=== PATIENT | female | born 1940 | race Caucasian/White ===

== ENCOUNTER 2023-04-19 04:05 | Day surgery (SDC) | payer OTHER ==
[2023-04-18 09:47] VITALS: BMI 30.4
[2023-04-19] MEDS ORDERED: LIDOCAINE HCL 1%, 10 MG/ML (20ML VIAL) ONE (09:15)
[2023-04-19] MEDS ORDERED: FENTANYL CITRATE/PF 50 MCG/ML VIAL ONE (09:26)
[2023-04-19] MEDS ORDERED: PROPOFOL 20 ML ONE (09:26)
[2023-04-19] MEDS ORDERED: MIDAZOLAM HCL 2 MG/2 ML SINGLE DOSE VIAL ONE (09:26)
[2023-04-19] MEDS ORDERED: ONDANSETRON 4 MG/2 ML VIAL ONE (09:49)
[2023-04-19] MEDS ORDERED: DEXAMETHASONE SOD PHOSPHATE 4 MG/1 ML VIAL ONE (09:49)
[2023-04-19] MEDS ORDERED: ceFAZolin SODIUM 1 GM VIAL ONE (09:53)
[2023-04-19] MEDS ORDERED: ceFAZolin SODIUM 1 GM VIAL IVPB ONE (09:54)
[2023-04-19] MEDS ORDERED: LIDOCAINE HCL 1%, 10 MG/ML (20ML VIAL) NR ONE ×2 (09:58)
[2023-04-19] MEDS ORDERED: BUPIVACAINE HCL 0.5% 250 MG/50 ML VIAL NR ONE (09:58)
[2023-04-19] MEDS ORDERED: KETOROLAC TROMETHAMINE 30 MG/1 ML VIAL ONE (10:15)
[2023-04-19 12:10] VITALS: BP 122/56; PULSE 72; RESP 16; TEMP 97.3
== END 2023-04-19 12:40 | disposition home or self-care (01) ==
LOC: JASU-SURG 04:05
PROVIDERS: ATTEND Orthopaedic Surgery
PROC: 0LB50ZZ Excision of Right Lower Arm and Wrist Tendon, Open Approach (ICD-10-PCS; 2023-04-19)
PROC: 01N50ZZ Release Median Nerve, Open Approach (ICD-10-PCS; principal; 2023-04-19 09:30)
DX: G56.01 Carpal tunnel syndrome, right upper limb (principal); M65.831 Other synovitis and tenosynovitis, right forearm
CPT/HCPCS: 82962; 88304-TC

== ENCOUNTER 2023-11-07 01:04 | Emergency (ER) | payer OTHER ==
[2023-11-07 01:15] VITALS: BP 105/64; PULSE 68; RESP 18; TEMP 97.9; BMI 28.3
[2023-11-07] MEDS ORDERED: ACETAMINOPHEN 325 MG TABLET (FP) ONE (02:06)
[2023-11-07] MEDS: ACETAMINOPHEN 325 MG TABLET (FP) PO ONE (02:10)
== END 2023-11-07 04:54 | disposition home or self-care (01) ==
LOC: JER 01:04
DX: M25.552 Pain in left hip (principal); W06.XXXA Fall from bed, initial encounter
CPT/HCPCS: 70450-TC; 71045-TC-FY; 72125-TC; 72170-TC-FY; 73502-TC-LT-FY; 73562-TC-LT-FY; 99284-25

== ENCOUNTER 2023-11-29 10:20 | Inpatient (IN) | payer OTHER ==
[2023-11-29] MEDS ORDERED: ACETAMINOPHEN INJECTION 100 ML IVPB ONE (13:01)
[2023-11-29] MEDS: ACETAMINOPHEN 1000 MG/100 ML BAG IVPB ONE (13:10)
[2023-11-29 13:11] LABS: BASO % 0.7 % (0-2.0); EOS % 3.1 % (0-4.5); HEMATOCRIT 35.5 % (32.4-45.2); LYMPH % 18.9 % (8-40); MCH 31.9 pg (25.7-33.7); MCHC 33.8 g/dl (32.0-36.0); MEAN CELL VOLUME 94.6 fl (80-96); MONO % 8.4 % (3.8-10.2); NEUT % 68.9 % (42.8-82.8); PLATELET COUNT 318 10^3/uL (134-434); RBC 3.76 M/mm3 (3.60-5.2); RDW 13.4 % (11.6-15.6); WHITE BLOOD COUNT 9.3 K/mm3 (4.0-10.0)
[2023-11-29 13:18] LABS: PROTHROMBIN TIME (PATIENT) 11.5 SEC (9.7-13.0)
[2023-11-29 13:28] LABS: POTASSIUM 4.1 mmol/L (3.5-5.1)
[2023-11-29 13:30] LABS: BLOOD UREA NITROGEN 23.3 mg/dL (7-18)
[2023-11-29 13:31] LABS: ALBUMIN 3.3 g/dl (3.4-5.0)
[2023-11-29 13:34] LABS: CREATININE 0.6 mg/dL (0.55-1.3)
[2023-11-29 13:35] LABS: BILIRUBIN,TOTAL 0.4 mg/dL (0.2-1); TOT PROT 5.9 g/dl (6.4-8.2)
[2023-11-29] MEDS: PIPERACILLIN/TAZOB 3.375 GM 3.375 GM in DEXTROSE 5%-WATER - 50 ML IVPB ONE (16:25)
[2023-11-29] MEDS ORDERED: PIPERACILLIN/TAZOB 3.375 GM 3.375 GM/50 ML BAG IVPB ONE (16:29)
[2023-11-29] MEDS ORDERED: VANCOMYCIN 1 GRAM (PRE-DOCKED) 1,000 MG/250 ML BAG IVPB ONE (16:29)
[2023-11-29] MEDS: VANCOMYCIN 1,000 MG in DEXTROSE 5%-WATER - 250 ML IVPB ONE (16:49)
[2023-11-29] MEDS ORDERED: CEFAZOLIN SODIUM 2 GM VIAL IVPB SCH (17:30)
[2023-11-29] MEDS ORDERED: ENOXAPARIN NA (PORCINE) 40 MG/0.4 ML DISP.SYRIN SQ ONE (17:49)
[2023-11-29] MEDS: ENOXAPARIN NA (PORCINE) 40 MG/0.4 ML DISP.SYRIN SQ SCH (18:53)
[2023-11-29] MEDS ORDERED: GABAPENTIN 300 MG CAPSULE ONE (22:03)
[2023-11-29] MEDS ORDERED: ATORVASTATIN CA 80 MG TABLET (FP) ONE (22:04)
[2023-11-29] MEDS ORDERED: DOCUSATE SODIUM 100 MG CAPSULE (FP) PO ONE (22:04)
[2023-11-29] MEDS: ATORVASTATIN CA 80 MG TABLET (FP) PO SCH (22:07)
[2023-11-29] MEDS: GABAPENTIN 300 MG CAPSULE PO SCH (22:07)
[2023-11-29] MEDS: DOCUSATE SODIUM 100 MG CAPSULE (FP) PO SCH (22:07)
[2023-11-29] MEDS: LATANOPROST 0.005% OPHTH SOLN 2.5ML BOTTLE OU SCH (22:49)
[2023-11-29] MEDS: TIMOLOL 0.5% OPHTHALMIC SOL 5 ML BOTTLE OU SCH (22:49)
[2023-11-30] MEDS ORDERED: ceFAZolin SODIUM 1 GM VIAL ONE (00:07)
[2023-11-30] MEDS: CEFAZOLIN SODIUM 2 GM in DEXTROSE 5%-WATER 100 ML IVPB SCH (00:13)
[2023-11-30] MEDS ORDERED: GABAPENTIN 300 MG CAPSULE ONE (05:55)
[2023-11-30 08:48] LABS: BASO % 0.8 % (0-2.0); EOS % 3.7 % (0-4.5); HEMATOCRIT 36.1 % (32.4-45.2); HEMOGLOBIN 11.9 GM/dL (10.7-15.3); LYMPH % 33.7 % (8-40); MCH 31.4 pg (25.7-33.7); MCHC 32.9 g/dl (32.0-36.0); MEAN CELL VOLUME 95.2 fl (80-96); MEAN PLT VOLUME 7.3 fl (7.5-11.1); MONO % 8.7 % (3.8-10.2); NEUT % 53.1 % (42.8-82.8); PLATELET COUNT 316 10^3/uL (134-434); RBC 3.79 M/mm3 (3.60-5.2); RDW 13.4 % (11.6-15.6); WHITE BLOOD COUNT 6.2 K/mm3 (4.0-10.0)
[2023-11-30 09:08] LABS: POTASSIUM 3.7 mmol/L (3.5-5.1)
[2023-11-30] MEDS ORDERED: LISINOPRIL 20 MG TABLET ONE (09:08)
[2023-11-30] MEDS ORDERED: HYDROCHLOROTHIAZIDE 25 MG TABLET (FP) ONE (09:08)
[2023-11-30] MEDS ORDERED: CEFAZOLIN SODIUM 2 GM VIAL ONE (09:09)
[2023-11-30] MEDS ORDERED: ASPIRIN 81 MG CHEWABLE TABLETS ONE (09:09)
[2023-11-30 09:14] LABS: ALBUMIN 3.2 g/dl (3.4-5.0); BLOOD UREA NITROGEN 16.2 mg/dL (7-18); CALCIUM 9.7 mg/dL (8.5-10.1)
[2023-11-30 09:16] LABS: CREATININE 0.6 mg/dL (0.55-1.3)
[2023-11-30] MEDS: ASPIRIN 81 MG CHEWABLE TABLETS PO SCH (09:16)
[2023-11-30 09:17] LABS: PHOSPHOROUS 3.7 mg/dL (2.5-4.9)
[2023-11-30] MEDS: HYDROCHLOROTHIAZIDE 25 MG TABLET (FP) PO SCH (09:17)
[2023-11-30] MEDS: LISINOPRIL 20 MG TABLET PO SCH (09:17)
[2023-11-30] MEDS: POLYETHYLENE GLYCOL (HEALTHYLAX) 3350 17 GM PACKET PO SCH (09:17)
[2023-11-30 09:18] LABS: BILIRUBIN,TOTAL 0.6 mg/dL (0.2-1); TOT PROT 5.8 g/dl (6.4-8.2)
[2023-11-30 09:19] LABS: MAGNESIUM 1.5 mg/dL (1.8-2.4)
[2023-11-30 13:26] VITALS: BMI 29.7
[2023-12-01] MEDS: MAGNESIUM SULF 50% (8.12 MEQ/2 ML-1 GM VIAL) IVPB ONE (08:53)
[2023-12-01] MEDS ORDERED: ACETAMINOPHEN 1000 MG/100 ML BAG IVPB PRN (10:09)
[2023-12-01] MEDS: GABAPENTIN 300 MG CAPSULE PO SCH (15:21)
[2023-12-01 16:42] LABS: EPI CELLS >36 /uL (0-25.1); HYALINE CASTS 2 /uL (0-3.1); PH,URINE 6.5 (5.0-8.0); URINE APPEARANCE CLOUDY; URINE BACTERIA 348 /uL (0-1359); URINE BILIRUBIN NEGATIVE (NEGATIVE); URINE COLOR YELLOW; URINE GLUCOSE (UA) NEGATIVE (NEGATIVE); URINE KETONE NEGATIVE (NEGATIVE); URINE LEUK ESTERASE 3+ (NEGATIVE); URINE NITRITE NEGATIVE (NEGATIVE); URINE PROTEIN TRACE (NEGATIVE); URINE RBC 27 /uL (0-23.9); URINE WBC 2265 /uL (0-25.8)
[2023-12-02 08:20] LABS: BASO % 0.7 % (0-2.0); EOS % 3.2 % (0-4.5); HEMATOCRIT 40.1 % (32.4-45.2); HEMOGLOBIN 13.2 GM/dL (10.7-15.3); LYMPH % 27.2 % (8-40); MCH 31.2 pg (25.7-33.7); MCHC 32.8 g/dl (32.0-36.0); MEAN CELL VOLUME 95.2 fl (80-96); MEAN PLT VOLUME 7.4 fl (7.5-11.1); MONO % 9.1 % (3.8-10.2); NEUT % 59.8 % (42.8-82.8); PLATELET COUNT 299 10^3/uL (134-434); RBC 4.22 M/mm3 (3.60-5.2); RDW 13.5 % (11.6-15.6); WHITE BLOOD COUNT 8.1 K/mm3 (4.0-10.0)
[2023-12-02 08:34] LABS: POTASSIUM 3.9 mmol/L (3.5-5.1)
[2023-12-02 08:43] LABS: CALCIUM 9.7 mg/dL (8.5-10.1)
[2023-12-02 08:44] LABS: ALBUMIN 3.4 g/dl (3.4-5.0); BLOOD UREA NITROGEN 19.9 mg/dL (7-18); MAGNESIUM 1.4 mg/dL (1.8-2.4)
[2023-12-02 08:46] LABS: CREATININE 0.8 mg/dL (0.55-1.3); PHOSPHOROUS 3.6 mg/dL (2.5-4.9)
[2023-12-02 08:48] LABS: BILIRUBIN,TOTAL 0.5 mg/dL (0.2-1); TOT PROT 6.1 g/dl (6.4-8.2)
[2023-12-02] MEDS: ACETAMINOPHEN 500 MG TABLET (FP) PO PRN (11:35)
[2023-12-03 07:30] LABS: ALBUMIN 2.9 g/dl (3.4-5.0); PHOSPHOROUS 3.3 mg/dL (2.5-4.9)
[2023-12-03 07:31] LABS: BLOOD UREA NITROGEN 26.4 mg/dL (7-18)
[2023-12-03 07:32] LABS: BILIRUBIN,TOTAL 0.5 mg/dL (0.2-1); MAGNESIUM 1.6 mg/dL (1.8-2.4); TOT PROT 5.6 g/dl (6.4-8.2)
[2023-12-03 07:34] LABS: CREATININE 0.8 mg/dL (0.55-1.3)
[2023-12-03] MEDS: MAGNESIUM SULF 50% (8.12 MEQ/2 ML-1 GM VIAL) IVPB ONE (08:19)
[2023-12-03] MEDS ORDERED: LISINOPRIL 20 MG TABLET PO SCH (10:22)
[2023-12-03] MEDS: NYSTATIN POWDER 100,000 UNITS/GM - 15 GM TOPICAL POWDER TP SCH (22:50)
[2023-12-04] MEDS: LISINOPRIL 10 MG TABLET PO SCH (09:34)
[2023-12-04 15:05] VITALS: BP 121/72; PULSE 62; RESP 18; TEMP 98.2
== END 2023-12-04 16:37 | DRG 605 ==
LOC: JER 10:20 → JERBED 13:37 → OBSVTOIN 17:25 → J4W 11-30 09:48
PROVIDERS: ADMIT Internal Medicine; ATTEND Internal Medicine
DX: S80.12XA Contusion of left lower leg, initial encounter (principal); G91.9 Hydrocephalus, unspecified; I10 Essential (primary) hypertension; E78.5 Hyperlipidemia, unspecified; E11.51 Type 2 diabetes mellitus with diabetic peripheral angiopathy without gangrene; M48.00 Spinal stenosis, site unspecified; R26.81 Unsteadiness on feet; F41.8 Other specified anxiety disorders; H40.9 Unspecified glaucoma; G89.29 Other chronic pain; Z95.0 Presence of cardiac pacemaker; W06.XXXA Fall from bed, initial encounter; Y92.092 Bedroom in other non-institutional residence as the place of occurrence of the external cause; Y99.9 Unspecified external cause status
CPT/HCPCS: 0241U-QW; 36415; 70450-TC; 71045-TC-FY; 72125-TC; 72170-TC-FY; 73562-TC-LT-FY; 80048; 80053; 81003; 82962; 83735; 84100; 84484; 85025; 85610; 85730; 86140; 87040; 87086; 87635; 93005; 93010; 93306-TC; 93880-TC; 93971-TC; 97116-GP; 97162-GP; 99285-25; G0378; J0131

== ENCOUNTER 2023-12-08 13:16 | Emergency (ER) | payer OTHER ==
[2023-12-08 13:48] VITALS: RESP 18; TEMP 98.1; BMI 30.2
[2023-12-08] MEDS ORDERED: DIPHTH,PERTUSS(ACELL),TET 0.5 ML DISP.SYRIN IM ONE (14:33)
[2023-12-08] MEDS ORDERED: ACETAMINOPHEN 325 MG TABLET (FP) ONE (14:33)
[2023-12-08] MEDS: ACETAMINOPHEN 500 MG TABLET (FP) PO ONE (14:50)
[2023-12-08] MEDS: DIPHTH,PERTUSS(ACELL),TET 0.5 ML DISP.SYRIN IM ONE (14:51)
[2023-12-08 14:56] LABS: BASO % 0.7 % (0-2.0); HEMATOCRIT 35.6 % (32.4-45.2); HEMOGLOBIN 11.8 GM/dL (10.7-15.3); LYMPH % 30.1 % (8-40); MCH 31.3 pg (25.7-33.7); MEAN CELL VOLUME 94.8 fl (80-96); MEAN PLT VOLUME 6.9 fl (7.5-11.1); MONO % 8.4 % (3.8-10.2); NEUT % 56.8 % (42.8-82.8); PLATELET COUNT 332 10^3/uL (134-434); RBC 3.75 M/mm3 (3.60-5.2); RDW 13.4 % (11.6-15.6); WHITE BLOOD COUNT 6.6 K/mm3 (4.0-10.0)
[2023-12-08 15:15] LABS: POTASSIUM 4.2 mmol/L (3.5-5.1)
[2023-12-08 15:17] LABS: CALCIUM 8.9 mg/dL (8.5-10.1)
[2023-12-08 15:18] LABS: ALBUMIN 3.4 g/dl (3.4-5.0); BLOOD UREA NITROGEN 18.1 mg/dL (7-18)
[2023-12-08 15:21] LABS: CREATININE 0.6 mg/dL (0.55-1.3)
[2023-12-08 15:22] LABS: BILIRUBIN,TOTAL 0.3 mg/dL (0.2-1); TOT PROT 6.2 g/dl (6.4-8.2)
[2023-12-08 16:33] LABS: EPI CELLS >36 /uL (0-25.1); HYALINE CASTS 1 /uL (0-3.1); PH,URINE 6.5 (5.0-8.0); URINE APPEARANCE CLEAR; URINE BACTERIA 80 /uL (0-1359); URINE BILIRUBIN NEGATIVE (NEGATIVE); URINE COLOR YELLOW; URINE GLUCOSE (UA) NEGATIVE (NEGATIVE); URINE KETONE NEGATIVE (NEGATIVE); URINE LEUK ESTERASE 1+ (NEGATIVE); URINE NITRITE NEGATIVE (NEGATIVE); URINE PROTEIN NEGATIVE (NEGATIVE); URINE RBC 5 /uL (0-23.9); URINE WBC 34 /uL (0-25.8)
[2023-12-08 20:16] VITALS: BP 112/70; PULSE 76
== END 2023-12-09 00:51 | disposition home or self-care (01) ==
LOC: JER 13:16
PROC: 0YQ9XZZ Repair Right Lower Extremity, External Approach (ICD-10-PCS; principal; 2023-12-08)
PROC: 3E0234Z Introduction of Serum, Toxoid and Vaccine into Muscle, Percutaneous Approach (ICD-10-PCS; 2023-12-08)
DX: S81.811A Laceration without foreign body, right lower leg, initial encounter (principal); W01.0XXA Fall on same level from slipping, tripping and stumbling without subsequent striking against object, initial encounter; Z23 Encounter for immunization
CPT/HCPCS: 12002-25; 36415; 70450-TC; 71045-TC-FY; 72125-TC; 72170-TC-FY; 73590-TC-RT-FY; 80053; 81003; 85025; 87086; 87186; 90471; 90715; 99285-25

== ENCOUNTER 2023-12-16 05:51 | Inpatient (IN) | payer OTHER ==
[2023-12-16 08:39] LABS: BASO % 0.6 % (0-2.0); EOS % 5.2 % (0-4.5); HEMATOCRIT 36.8 % (32.4-45.2); HEMOGLOBIN 12.3 GM/dL (10.7-15.3); LYMPH % 28.5 % (8-40); MCH 31.4 pg (25.7-33.7); MCHC 33.4 g/dl (32.0-36.0); MEAN CELL VOLUME 93.8 fl (80-96); MEAN PLT VOLUME 6.8 fl (7.5-11.1); MONO % 7.7 % (3.8-10.2); PLATELET COUNT 303 10^3/uL (134-434); RBC 3.92 M/mm3 (3.60-5.2); RDW 13.4 % (11.6-15.6); WHITE BLOOD COUNT 7.4 K/mm3 (4.0-10.0)
[2023-12-16 08:49] LABS: POTASSIUM 3.7 mmol/L (3.5-5.1)
[2023-12-16 08:51] LABS: CALCIUM 8.8 mg/dL (8.5-10.1)
[2023-12-16 08:52] LABS: ALBUMIN 3.2 g/dl (3.4-5.0); BLOOD UREA NITROGEN 15.8 mg/dL (7-18)
[2023-12-16 08:55] LABS: CREATININE 0.6 mg/dL (0.55-1.3)
[2023-12-16 08:56] LABS: BILIRUBIN,TOTAL 0.3 mg/dL (0.2-1)
[2023-12-16 08:57] LABS: TOT PROT 5.9 g/dl (6.4-8.2)
[2023-12-16 10:53] LABS: EPI CELLS 20 /uL (0-25.1); HYALINE CASTS 0 /uL (0-3.1); URINE APPEARANCE CLEAR; URINE BACTERIA 215 /uL (0-1359); URINE BILIRUBIN NEGATIVE (NEGATIVE); URINE COLOR YELLOW; URINE GLUCOSE (UA) NEGATIVE (NEGATIVE); URINE KETONE NEGATIVE (NEGATIVE); URINE LEUK ESTERASE 2+ (NEGATIVE); URINE NITRITE NEGATIVE (NEGATIVE); URINE PROTEIN NEGATIVE (NEGATIVE); URINE RBC 15 /uL (0-23.9); URINE WBC 55 /uL (0-25.8)
[2023-12-16] MEDS ORDERED: ACETAMINOPHEN 500 MG TABLET (FP) PO PRN (11:47)
[2023-12-16] MEDS ORDERED: DICLOFENAC SODIUM TP PRN (11:47)
[2023-12-16 17:33] VITALS: BMI 30.7
[2023-12-16] MEDS: DOCUSATE SODIUM 100 MG CAPSULE (FP) PO SCH (21:03)
[2023-12-16] MEDS: HEPARIN NA (PORCINE) 5,000 UNITS/ML 1ML VIAL SQ SCH (21:04)
[2023-12-16] MEDS: ATORVASTATIN CA 80 MG TABLET (FP) PO SCH (21:04)
[2023-12-16] MEDS: LATANOPROST 0.005% OPHTH SOLN 2.5ML BOTTLE OU SCH (21:40)
[2023-12-16] MEDS: TIMOLOL 0.5% OPHTHALMIC SOL 5 ML BOTTLE OU SCH (21:40)
[2023-12-17 09:37] LABS: BASO % 0.6 % (0-2.0); EOS % 2.9 % (0-4.5); HEMATOCRIT 40.1 % (32.4-45.2); HEMOGLOBIN 12.9 GM/dL (10.7-15.3); LYMPH % 20.9 % (8-40); MCH 30.8 pg (25.7-33.7); MCHC 32.2 g/dl (32.0-36.0); MEAN CELL VOLUME 95.8 fl (80-96); MEAN PLT VOLUME 7.4 fl (7.5-11.1); MONO % 5.3 % (3.8-10.2); NEUT % 70.3 % (42.8-82.8); PLATELET COUNT 264 10^3/uL (134-434); RBC 4.19 M/mm3 (3.60-5.2); RDW 13.6 % (11.6-15.6); WHITE BLOOD COUNT 8.7 K/mm3 (4.0-10.0)
[2023-12-17] MEDS: ASPIRIN 81 MG CHEWABLE TABLETS PO SCH (09:58)
[2023-12-17] MEDS: CALCIUM 500MG/VIT-D 200 UNITS COMBO TABLET (FP) PO SCH (10:01)
[2023-12-17] MEDS: FERROUS GLUCONATE 324 MG TAB (FP) PO SCH (10:01)
[2023-12-17] MEDS: POLYETHYLENE GLYCOL 3350 255 GM BTL PO SCH (10:02)
[2023-12-17 10:33] LABS: POTASSIUM 4.1 mmol/L (3.5-5.1)
[2023-12-17 10:46] LABS: BLOOD UREA NITROGEN 12.2 mg/dL (7-18); CALCIUM 9.6 mg/dL (8.5-10.1)
[2023-12-17 10:50] LABS: CREATININE 0.6 mg/dL (0.55-1.3)
[2023-12-17 14:22] VITALS: RESP 18
[2023-12-17 20:59] LABS: CHOLESTEROL 137 mg/dL (50-200)
[2023-12-17 21:01] LABS: HDL CHOLESTEROL 63 mg/dL (40-60); LDL CHOLESTEROL (ONLY SJRH) 63 mg/dL (5-100)
[2023-12-17] MEDS: INSULIN ASPART SLIDING SCALE (NOVOLOG) 1 VIAL SQ SCH (21:36)
[2023-12-18 07:43] LABS: HEMATOCRIT 39.5 % (32.4-45.2); HEMOGLOBIN 12.7 GM/dL (10.7-15.3); MCH 30.7 pg (25.7-33.7); MCHC 32.1 g/dl (32.0-36.0); MEAN CELL VOLUME 95.6 fl (80-96); MEAN PLT VOLUME 7.3 fl (7.5-11.1); PLATELET COUNT 257 10^3/uL (134-434); RBC 4.13 M/mm3 (3.60-5.2); RDW 13.4 % (11.6-15.6); WHITE BLOOD COUNT 7.4 K/mm3 (4.0-10.0)
[2023-12-18 07:55] LABS: CALCIUM 9.9 mg/dL (8.5-10.1)
[2023-12-18 07:57] LABS: ALBUMIN 3.2 g/dl (3.4-5.0); BLOOD UREA NITROGEN 13.8 mg/dL (7-18); MAGNESIUM 1.5 mg/dL (1.8-2.4)
[2023-12-18 07:59] LABS: CREATININE 0.6 mg/dL (0.55-1.3); PHOSPHOROUS 3.6 mg/dL (2.5-4.9)
[2023-12-18 08:01] LABS: TOT PROT 5.8 g/dl (6.4-8.2)
[2023-12-18 08:02] LABS: BILIRUBIN,TOTAL 0.5 mg/dL (0.2-1)
[2023-12-18] MEDS: COLLAGENASE CLOSTRIDIUM HIST. 30 GRAMS TUBE TP SCH (10:05)
[2023-12-18] MEDS: ACETAMINOPHEN 325 MG TABLET (FP) PO ONE (17:22)
[2023-12-18] MEDS ORDERED: DICLOFENAC SODIUM TP PRN (22:05)
[2023-12-19] MEDS: INSULIN ASPART SLIDING SCALE (NOVOLOG) 1 VIAL SQ SCH (06:43)
[2023-12-19] MEDS: ACETAMINOPHEN 500 MG TABLET (FP) PO PRN (09:14)
[2023-12-19] MEDS: FERROUS GLUCONATE 324 MG TAB (FP) PO SCH (09:15)
[2023-12-19] MEDS: CALCIUM 500MG/VIT-D 200 UNITS COMBO TABLET (FP) PO SCH (09:15)
[2023-12-19] MEDS: COLLAGENASE CLOSTRIDIUM HIST. 30 GRAMS TUBE TP SCH (09:16)
[2023-12-19] MEDS: TIMOLOL 0.5% OPHTHALMIC SOL 5 ML BOTTLE OU SCH (09:17)
[2023-12-19] MEDS: HEPARIN NA (PORCINE) 5,000 UNITS/ML 1ML VIAL SQ SCH (09:17)
[2023-12-19] MEDS: ASPIRIN 81 MG CHEWABLE TABLETS PO SCH (09:18)
[2023-12-19] MEDS: POLYETHYLENE GLYCOL 3350 255 GM BTL PO SCH (11:01)
[2023-12-19] MEDS: DOCUSATE SODIUM 100 MG CAPSULE (FP) PO SCH (22:26)
[2023-12-19] MEDS: ATORVASTATIN CA 80 MG TABLET (FP) PO SCH (22:27)
[2023-12-19] MEDS: LATANOPROST 0.005% OPHTH SOLN 2.5ML BOTTLE OU SCH (22:29)
[2023-12-20 14:37] VITALS: BP 142/80; PULSE 65; TEMP 98.6
== END 2023-12-20 19:54 | DRG 312 ==
LOC: JER 05:51 → JERBED 10:55 → OBSVTOIN 13:07 → J4S 16:46 → J8W 12-18 22:13
PROVIDERS: ADMIT Internal Medicine; ATTEND Internal Medicine
DX: R55 Syncope and collapse (principal); E78.5 Hyperlipidemia, unspecified; E11.51 Type 2 diabetes mellitus with diabetic peripheral angiopathy without gangrene; Z95.0 Presence of cardiac pacemaker; I10 Essential (primary) hypertension; I45.10 Unspecified right bundle-branch block; R29.6 Repeated falls; M54.9 Dorsalgia, unspecified; S81.801A Unspecified open wound, right lower leg, initial encounter; W06.XXXA Fall from bed, initial encounter; Y92.092 Bedroom in other non-institutional residence as the place of occurrence of the external cause; Y99.9 Unspecified external cause status
CPT/HCPCS: 36415; 70450-TC; 71045-TC-FY; 72125-TC; 72170-TC-FY; 73562-TC-LT-FY; 80048; 80053; 80061; 81003; 82962; 83735; 84100; 84484; 85025; 85027; 87086; 87635; 93005; 93010; 93880-TC; 95816; 97116-GP; 97161-GP; 99285-25; G0378; J1644

== ENCOUNTER 2024-04-16 12:05 | Day surgery (SDC) | payer OTHER ==
[2024-04-15 11:17] VITALS: BMI 31.9
[2024-04-16 13:54] VITALS: TEMP 97
[2024-04-16 13:57] VITALS: BP 125/64; PULSE 68; RESP 18
== END 2024-04-16 14:24 | disposition home or self-care (01) ==
LOC: FASU-ENDO 12:05
PROVIDERS: ATTEND Internal Medicine Gastroenterology
PROC: 0DB68ZX Excision of Stomach, Via Natural or Artificial Opening Endoscopic, Diagnostic (ICD-10-PCS; 2024-04-16)
PROC: 0DB48ZX Excision of Esophagogastric Junction, Via Natural or Artificial Opening Endoscopic, Diagnostic (ICD-10-PCS; 2024-04-16)
PROC: 0DB98ZX Excision of Duodenum, Via Natural or Artificial Opening Endoscopic, Diagnostic (ICD-10-PCS; principal; 2024-04-16 13:18)
DX: K29.50 Unspecified chronic gastritis without bleeding (principal); K21.00 Gastro-esophageal reflux disease with esophagitis, without bleeding
CPT/HCPCS: 82962; 88305-TC; 88342-TC

== ENCOUNTER 2024-04-20 14:14 | Emergency (ER) | payer OTHER ==
[2024-04-20 14:41] VITALS: TEMP 98.4; BMI 28.7
[2024-04-20 20:16] VITALS: BP 151/94; PULSE 75; RESP 18
== END 2024-04-20 20:18 | disposition home or self-care (01) ==
LOC: JER 14:14
DX: M25.561 Pain in right knee (principal); M25.562 Pain in left knee; G89.29 Other chronic pain; W01.0XXA Fall on same level from slipping, tripping and stumbling without subsequent striking against object, initial encounter
CPT/HCPCS: 70450-TC; 72125-TC; 72170-TC-FY; 99284-25

== ENCOUNTER 2024-05-30 02:30 | Emergency (ER) | payer OTHER ==
[2024-05-30 02:40] VITALS: RESP 18; BMI 41.5
[2024-05-30 05:11] LABS: POTASSIUM 3.6 mmol/L (3.5-5.1)
[2024-05-30 05:14] LABS: ALBUMIN 3.3 g/dl (3.4-5.0); BLOOD UREA NITROGEN 21.8 mg/dL (7-18)
[2024-05-30 05:16] LABS: CREATININE 0.8 mg/dL (0.55-1.3)
[2024-05-30 05:18] LABS: BILIRUBIN,TOTAL 0.8 mg/dL (0.2-1); TOT PROT 6.1 g/dl (6.4-8.2)
[2024-05-30 05:28] LABS: BASO % 0.1 % (0-2.0); EOS % 0.7 % (0-4.5); HEMATOCRIT 36.5 % (32.4-45.2); HEMOGLOBIN 11.8 GM/dL (10.7-15.3); LYMPH % 9.9 % (8-40); MCH 29.1 pg (25.7-33.7); MCHC 32.3 g/dl (32.0-36.0); MEAN CELL VOLUME 89.9 fl (80-96); MEAN PLT VOLUME 7.7 fl (7.5-11.1); MONO % 2.6 % (3.8-10.2); NEUT % 86.7 % (42.8-82.8); PLATELET COUNT 241 10^3/uL (134-434); RBC 4.06 M/mm3 (3.60-5.2); RDW 15.3 % (11.6-15.6); WHITE BLOOD COUNT 8.2 K/mm3 (4.0-10.0)
[2024-05-30 07:43] LABS: EPI CELLS 16 /uL (0-25.1); HYALINE CASTS 0 /uL (0-3.1); URINE APPEARANCE CLEAR; URINE BACTERIA 188 /uL (0-1359); URINE BILIRUBIN NEGATIVE (NEGATIVE); URINE COLOR YELLOW; URINE GLUCOSE (UA) NEGATIVE (NEGATIVE); URINE KETONE TRACE (NEGATIVE); URINE LEUK ESTERASE 2+ (NEGATIVE); URINE NITRITE NEGATIVE (NEGATIVE); URINE PROTEIN NEGATIVE (NEGATIVE); URINE RBC 10 /uL (0-23.9); URINE UROBILINOGEN 0.2 mg/dL (0.2-1.0); URINE WBC 332 /uL (0-25.8)
[2024-05-30] MEDS ORDERED: CEFTRIAXONE 1 G/50 ML PREMIX 50 ML IVPB ONE (08:15)
[2024-05-30] MEDS: CEFTRIAXONE 1 GM in DEXTROSE 5%-WATER - 100 ML IVPB ONE (08:25)
[2024-05-30 10:29] VITALS: BP 113/58; PULSE 79
== END 2024-05-30 10:29 | disposition home or self-care (01) ==
LOC: JER 02:30
DX: N39.0 Urinary tract infection, site not specified (principal); W19.XXXA Unspecified fall, initial encounter
CPT/HCPCS: 36415; 70450-TC; 71045-TC-FY; 72125-TC; 72170-TC-FY; 80053; 81003; 82550; 84484; 85025; 87086; 93005; 93010; 99285-25

== ENCOUNTER 2024-05-30 11:41 | Inpatient (IN) | payer OTHER ==
[2024-05-30 11:48] VITALS: BMI 28.3
[2024-05-30] MEDS: INSULIN ASPART SLIDING SCALE (NOVOLOG) 1 VIAL SQ SCH (16:37)
[2024-05-30] MEDS ORDERED: TRIMETHOBENZAMIDE HCL 200MG/2ML INJ IM ONE (18:57)
[2024-05-30] MEDS: TRIMETHOBENZAMIDE HCL 200MG/2ML INJ IM ONE (19:02)
[2024-05-30] MEDS ORDERED: ATORVASTATIN CA 40 MG TABLET (FP) ONE (23:36)
[2024-05-30] MEDS ORDERED: GABAPENTIN 300 MG CAPSULE ONE (23:36)
[2024-05-30] MEDS: GABAPENTIN 300 MG CAPSULE PO SCH (23:46)
[2024-05-30] MEDS: ATORVASTATIN CA 80 MG TABLET (FP) PO SCH (23:46)
[2024-05-31] MEDS ORDERED: ACETAMINOPHEN 325 MG TABLET (FP) ONE (05:54)
[2024-05-31] MEDS: ACETAMINOPHEN 325 MG TABLET (FP) PO PRN (06:05)
[2024-05-31] MEDS ORDERED: GABAPENTIN 300 MG CAPSULE ONE (06:19)
[2024-05-31 06:38] LABS: HEMATOCRIT 37.1 % (32.4-45.2); HEMOGLOBIN 12.2 GM/dL (10.7-15.3); MCH 29.4 pg (25.7-33.7); MCHC 32.9 g/dl (32.0-36.0); MEAN CELL VOLUME 89.4 fl (80-96); MEAN PLT VOLUME 7.9 fl (7.5-11.1); PLATELET COUNT 224 10^3/uL (134-434); RBC 4.15 M/mm3 (3.60-5.2); RDW 15.7 % (11.6-15.6); WHITE BLOOD COUNT 5.9 K/mm3 (4.0-10.0)
[2024-05-31 06:50] LABS: POTASSIUM 3.3 mmol/L (3.5-5.1)
[2024-05-31 06:54] LABS: BLOOD UREA NITROGEN 17.6 mg/dL (7-18)
[2024-05-31 06:58] LABS: CREATININE 0.6 mg/dL (0.55-1.3)
[2024-05-31] MEDS: POTASSIUM CHLORIDE TABS 20 MEQ TABLET.ER (FP) PO ONE (08:50)
[2024-05-31] MEDS ORDERED: PATIENT'S OWN MEDICATION (NON-FORMULARY) (Bupropion Hcl [Bupropion Xl] 300 MG Tab.Er.24h) PO SCH (10:00)
[2024-05-31] MEDS: PANTOPRAZOLE 40 MG TABLET PO SCH (10:26)
[2024-05-31] MEDS: amLODIPine BESYLATE 10 MG TABLET (FP) PO SCH (10:26)
[2024-05-31] MEDS: ENOXAPARIN NA (PORCINE) 40 MG/0.4 ML DISP.SYRIN SQ SCH (10:26)
[2024-05-31] MEDS: SERTRALINE HCL 50 MG TABLET (FP) PO SCH (10:27)
[2024-05-31] MEDS: CEFTRIAXONE 1 G/50 ML PREMIX 50 ML IVPB SCH (10:28)
[2024-05-31] MEDS ORDERED: CEFTRIAXONE 1 G/50 ML PREMIX 50 ML IVPB ONE (10:35)
[2024-05-31] MEDS ORDERED: POTASSIUM CHLORIDE TABS 20 MEQ TABLET.ER (FP) PO ONE (16:10)
[2024-06-01 03:15] VITALS: RESP 18
[2024-06-01 09:00] LABS: BASO % 0.4 % (0-2.0); EOS % 3.2 % (0-4.5); HEMATOCRIT 40.4 % (32.4-45.2); HEMOGLOBIN 13.8 GM/dL (10.7-15.3); LYMPH % 26.7 % (8-40); MCH 30.3 pg (25.7-33.7); MCHC 34.1 g/dl (32.0-36.0); NEUT % 59.7 % (42.8-82.8); PLATELET COUNT 242 10^3/uL (134-434); RBC 4.54 M/mm3 (3.60-5.2); RDW 15.8 % (11.6-15.6); WHITE BLOOD COUNT 6.5 K/mm3 (4.0-10.0)
[2024-06-01 09:19] LABS: ALBUMIN 3.2 g/dl (3.4-5.0); CALCIUM 8.2 mg/dL (8.5-10.1)
[2024-06-01 09:20] LABS: BLOOD UREA NITROGEN 13.3 mg/dL (7-18)
[2024-06-01 09:22] LABS: CREATININE 0.6 mg/dL (0.55-1.3)
[2024-06-01 09:24] LABS: BILIRUBIN,TOTAL 0.5 mg/dL (0.2-1); TOT PROT 6.4 g/dl (6.4-8.2)
[2024-06-02 08:16] LABS: BASO % 0.3 % (0-2.0); EOS % 4.8 % (0-4.5); HEMATOCRIT 38.1 % (32.4-45.2); HEMOGLOBIN 12.5 GM/dL (10.7-15.3); LYMPH % 30.6 % (8-40); MCH 29.1 pg (25.7-33.7); MCHC 32.9 g/dl (32.0-36.0); MEAN CELL VOLUME 88.7 fl (80-96); MEAN PLT VOLUME 7.8 fl (7.5-11.1); MONO % 11.9 % (3.8-10.2); NEUT % 52.4 % (42.8-82.8); PLATELET COUNT 238 10^3/uL (134-434); RDW 15.8 % (11.6-15.6); WHITE BLOOD COUNT 5.4 K/mm3 (4.0-10.0)
[2024-06-02 08:59] LABS: POTASSIUM 3.6 mmol/L (3.5-5.1)
[2024-06-02 09:11] LABS: BLOOD UREA NITROGEN 10.1 mg/dL (7-18); MAGNESIUM 1.7 mg/dL (1.8-2.4)
[2024-06-02 09:13] LABS: CREATININE 0.5 mg/dL (0.55-1.3)
[2024-06-02 09:15] LABS: BILIRUBIN,TOTAL 0.5 mg/dL (0.2-1); TOT PROT 5.5 g/dl (6.4-8.2)
[2024-06-02] MEDS: MAGNESIUM OXIDE 400 MG TABLET (FP) PO ONE (10:57)
[2024-06-02] MEDS ORDERED: ACETAMINOPHEN 325 MG TABLET (FP) PO PRN (21:54)
[2024-06-02] MEDS: INSULIN ASPART SLIDING SCALE (NOVOLOG) 1 VIAL SQ SCH (22:14)
[2024-06-02] MEDS: GABAPENTIN 300 MG CAPSULE PO SCH (22:14)
[2024-06-02] MEDS: ATORVASTATIN CA 80 MG TABLET (FP) PO SCH (22:14)
[2024-06-03 08:50] LABS: EPI CELLS >36 /uL (0-25.1); HYALINE CASTS 4 /uL (0-3.1); URINE APPEARANCE CLOUDY; URINE BACTERIA 1448 /uL (0-1359); URINE BILIRUBIN NEGATIVE (NEGATIVE); URINE COLOR YELLOW; URINE GLUCOSE (UA) NEGATIVE (NEGATIVE); URINE KETONE NEGATIVE (NEGATIVE); URINE LEUK ESTERASE 3+ (NEGATIVE); URINE NITRITE NEGATIVE (NEGATIVE); URINE PROTEIN TRACE (NEGATIVE); URINE RBC 26 /uL (0-23.9); URINE WBC 1712 /uL (0-25.8)
[2024-06-03] MEDS: SERTRALINE HCL 50 MG TABLET (FP) PO SCH (10:44)
[2024-06-03] MEDS: ENOXAPARIN NA (PORCINE) 40 MG/0.4 ML DISP.SYRIN SQ SCH (10:44)
[2024-06-03] MEDS: PANTOPRAZOLE 40 MG TABLET PO SCH (10:44)
[2024-06-03] MEDS: amLODIPine BESYLATE 10 MG TABLET (FP) PO SCH (10:44)
[2024-06-03 17:49] VITALS: BP 120/77; PULSE 77; TEMP 99
== END 2024-06-03 20:19 | DRG 93 ==
LOC: JER 11:41 → JERBED 12:19 → J4W 05-31 20:41 → J6S 06-02 13:20
PROVIDERS: ADMIT Student in an Organized Health Care Education/Training Program; ATTEND Student in an Organized Health Care Education/Training Program
DX: R29.6 Repeated falls (principal); I10 Essential (primary) hypertension; E78.5 Hyperlipidemia, unspecified; F41.8 Other specified anxiety disorders; E11.51 Type 2 diabetes mellitus with diabetic peripheral angiopathy without gangrene; H40.9 Unspecified glaucoma; R53.83 Other fatigue; M48.00 Spinal stenosis, site unspecified; Z95.0 Presence of cardiac pacemaker; G47.30 Sleep apnea, unspecified
CPT/HCPCS: 36415; 80048; 80053; 81003; 82962; 83735; 85025; 85027; 93306-TC; 97116-GP; 97161-GP; 99285-25

== ENCOUNTER 2024-10-02 13:42 | Inpatient (IN) | payer OTHER ==
[2024-10-02 14:57] VITALS: BMI 27.3
[2024-10-02 15:23] LABS: VENOUS BASE EXCESS 2.4 mmol/L (-2-2); VENOUS O2 SATURATION 56.8 % (70-80); VENOUS PCO2 49.8 mmHg (38-52); VENOUS PH 7.374 (7.310-7.410)
[2024-10-02 15:24] LABS: ABSOLUTE IMMATURE GRANULOCYTES 0.04 x10^3/uL (0.0-0.031); BASOPHILS # 0.03 x10^3/uL (0.01-0.08); EOSINOPHIL % 1.8 % (0.7-5.8); EOSINOPHILS # 0.17 x10^3/uL (0.04-0.36); HEMATOCRIT 40.6 % (34.1-44.9); MCHC 29.6 g/dl (32.2-35.5); MEAN CELL VOLUME 91.4 fl (79.4-94.8); MEAN PLT VOLUME 9.6 fl (9.4-12.3); MONOCYTE # 0.66 x10^3/uL (0.24-0.86); PLATELET COUNT 334 x10^3/uL (182-369); RDW 18.3 % (12.5-17.0)
[2024-10-02 15:44] LABS: POTASSIUM 3.9 mmol/L (3.5-5.1)
[2024-10-02 15:48] LABS: ALBUMIN 2.6 g/dl (3.4-5.0); BLOOD UREA NITROGEN 17.3 mg/dL (7-18); CALCIUM 9.7 mg/dL (8.5-10.1); MAGNESIUM 1.4 mg/dL (1.8-2.4)
[2024-10-02 15:51] LABS: CREATININE 0.6 mg/dL (0.55-1.3)
[2024-10-02 15:53] LABS: BILIRUBIN,TOTAL 0.5 mg/dL (0.2-1)
[2024-10-02] MEDS ORDERED: MAGNESIUM SULFATE IN WATER 2 GM/50 ML IVPB IVPB ONE (16:00)
[2024-10-02] MEDS: MAGNESIUM SULFATE IN WATER 2 GM/50 ML IVPB IVPB ONE (17:22)
[2024-10-02 19:45] LABS: EPI CELLS 6 /uL (0-25.1); HYALINE CASTS 1 /uL (0-3.1); URINE APPEARANCE TURBID; URINE BACTERIA >9,000 /uL (0-1359); URINE BILIRUBIN 1+ (NEGATIVE); URINE COLOR DK YELLOW; URINE GLUCOSE (UA) NEGATIVE (NEGATIVE); URINE KETONE NEGATIVE (NEGATIVE); URINE LEUK ESTERASE 3+ (NEGATIVE); URINE NITRITE NEGATIVE (NEGATIVE); URINE PROTEIN 2+ (NEGATIVE); URINE RBC 93 /uL (0-23.9); URINE WBC 5717 /uL (0-25.8)
[2024-10-02] MEDS ORDERED: CEFTRIAXONE 1 G/50 ML PREMIX 50 ML IVPB ONE (20:27)
[2024-10-02] MEDS: CEFTRIAXONE 1 GM in DEXTROSE 5%-WATER - 100 ML IVPB ONE (20:33)
[2024-10-03] MEDS ORDERED: ACETAMINOPHEN 325 MG TABLET (FP) PO PRN (04:07)
[2024-10-03] MEDS: GABAPENTIN 300 MG CAPSULE PO SCH (05:35)
[2024-10-03] MEDS ORDERED: KETOROLAC TROMETHAMINE 0.5% EYE DROP 1 DROP DROPS OP SCH (06:00)
[2024-10-03] MEDS: INSULIN ASPART SLIDING SCALE (NOVOLOG) 1 VIAL SQ SCH (06:07)
[2024-10-03 07:55] LABS: HEMATOCRIT 37.7 % (34.1-44.9); HEMOGLOBIN 11.2 g/dL (11.2-15.7); MCHC 29.7 g/dl (32.2-35.5); MEAN CELL VOLUME 91.5 fl (79.4-94.8); MEAN PLT VOLUME 9.7 fl (9.4-12.3); PLATELET COUNT 282 x10^3/uL (182-369); RDW 18.4 % (12.5-17.0)
[2024-10-03 08:18] LABS: CALCIUM 9.5 mg/dL (8.5-10.1)
[2024-10-03 08:19] LABS: ALBUMIN 2.3 g/dl (3.4-5.0); BLOOD UREA NITROGEN 19.1 mg/dL (7-18); MAGNESIUM 1.8 mg/dL (1.8-2.4)
[2024-10-03 08:22] LABS: CREATININE 0.7 mg/dL (0.55-1.3)
[2024-10-03 08:24] LABS: BILIRUBIN,TOTAL 0.3 mg/dL (0.2-1); TOT PROT 5.5 g/dl (6.4-8.2)
[2024-10-03] MEDS: AMINO ACIDS/PROTEIN HYDROLYS 30 ML LIQUID.PKT PO SCH (08:25)
[2024-10-03] MEDS: FAMOTIDINE 20 MG TABLET PO SCH (09:11)
[2024-10-03] MEDS: POLYETHYLENE GLYCOL (HEALTHYLAX) 3350 17 GM PACKET PO SCH (09:11)
[2024-10-03] MEDS: ASPIRIN 81 MG CHEWABLE TABLETS PO SCH (09:11)
[2024-10-03] MEDS: LACTOBACILLUS ACIDOPHILUS 1 TABLET PO SCH (09:11)
[2024-10-03] MEDS: PANTOPRAZOLE 40 MG TABLET PO SCH (09:11)
[2024-10-03] MEDS: SERTRALINE HCL 50 MG TABLET (FP) PO SCH (09:11)
[2024-10-03] MEDS: CEFTRIAXONE 1 G/50 ML PREMIX 50 ML IVPB SCH (09:12)
[2024-10-03] MEDS: NYSTATIN POWDER 100,000 UNITS/GM - 30 GM TOPICAL POWDER TP SCH (09:13)
[2024-10-03] MEDS: TIMOLOL 0.5% OPHTHALMIC SOL 5 ML BOTTLE OU SCH (09:14)
[2024-10-03] MEDS: ENOXAPARIN NA (PORCINE) 40 MG/0.4 ML DISP.SYRIN SQ SCH (09:26)
[2024-10-03] MEDS ORDERED: PATIENT'S OWN MEDICATION (NON-FORMULARY) (Omega-3 Fatty Acids [Omega-3] 1,000 MG Capsule) PO SCH (10:00)
[2024-10-03] MEDS: FERROUS GLUCONATE 324 MG TAB (FP) PO SCH (11:18)
[2024-10-03] MEDS: ACETAMINOPHEN 325 MG TABLET (FP) PO PRN (13:15)
[2024-10-03] MEDS: MIRTAZAPINE 15 MG TABLET (FP) PO SCH (21:12)
[2024-10-03] MEDS: ATORVASTATIN CA 80 MG TABLET (FP) PO SCH (21:12)
[2024-10-04 08:21] LABS: HEMATOCRIT 36.5 % (34.1-44.9); HEMOGLOBIN 11.1 g/dL (11.2-15.7); MCHC 30.4 g/dl (32.2-35.5); MEAN CELL VOLUME 90.8 fl (79.4-94.8); MEAN PLT VOLUME 9.8 fl (9.4-12.3); PLATELET COUNT 306 x10^3/uL (182-369)
[2024-10-04 08:44] LABS: POTASSIUM 3.5 mmol/L (3.5-5.1)
[2024-10-04 09:00] LABS: ALBUMIN 2.3 g/dl (3.4-5.0); BLOOD UREA NITROGEN 21.2 mg/dL (7-18); CALCIUM 9.6 mg/dL (8.5-10.1); MAGNESIUM 1.7 mg/dL (1.8-2.4)
[2024-10-04 09:03] LABS: CREATININE 0.6 mg/dL (0.55-1.3)
[2024-10-04 09:05] LABS: BILIRUBIN,TOTAL 0.3 mg/dL (0.2-1); TOT PROT 5.6 g/dl (6.4-8.2)
[2024-10-04 09:06] LABS: PHOSPHOROUS 2.6 mg/dL (2.5-4.9)
[2024-10-04] MEDS: MAG HYDROX/AL HYDROX/SIMETH 30 ML UNIT-DOSE CUP PO PRN (10:08)
[2024-10-04] MEDS: BISACODYL 10 MG SUPP.RECT PR ONE (13:43)
[2024-10-04] MEDS: CEFPODOXIME PROXETIL 100 MG TABLET PO SCH (15:34)
[2024-10-05] MEDS: MAGNESIUM OXIDE 400 MG TABLET (FP) PO ONE (09:00)
[2024-10-05 14:19] VITALS: BP 103/67; PULSE 80; RESP 18; TEMP 97.9
[2024-10-05] MEDS: FOSFOMYCIN TROMETHAMINE 3 GM/PKT FOR ORAL SOLUTION PO ONE (14:33)
== END 2024-10-05 17:57 | DRG 689 ==
LOC: JER 13:42 → JERBED 19:59 → J6S 23:51 → OBSVTOIN 10-03 00:27
PROVIDERS: ADMIT Internal Medicine; ATTEND Internal Medicine
DX: N39.0 Urinary tract infection, site not specified (principal); G93.41 Metabolic encephalopathy; Z16.12 Extended spectrum beta lactamase (ESBL) resistance; I10 Essential (primary) hypertension; E78.5 Hyperlipidemia, unspecified; H40.9 Unspecified glaucoma; F41.9 Anxiety disorder, unspecified; F32.A Depression, unspecified; E11.51 Type 2 diabetes mellitus with diabetic peripheral angiopathy without gangrene; L89.151 Pressure ulcer of sacral region, stage 1
CPT/HCPCS: 0241U-QW; 36415; 70450-TC; 71045-TC-FY; 71250-TC; 80053; 81003; 82803; 82962; 83605; 83690; 83735; 84100; 84484; 85025; 85027; 87086; 87186; 93005; 93010; 97116-GP; 97162-GP; 99285-25; G0378